=== PATIENT | female | born 1955 | race Caucasian/White ===

== ENCOUNTER 2020-11-04 09:43 | Day surgery (SDC) | payer MEDICARE, OTHER ==
[~2020-11-04] VITALS: Ht 170.2 cm; Wt 114.9 kg
[~2020-11-04 09:43] MED LIST: AZIT250 PO; BETA1 PO; CETI10 PO; FISH1000 PO; FLUSAL2505 IH; LIOT25 PO; NAPR220 PO; [UNRECOGNIZED DRUG - REMARK]
[2020-11-04] MEDS ORDERED: FLUT1DIS2 (10:47)
[2020-11-04] MEDS ORDERED: MAGNESIUM OXID500 MG PO (10:48)
== END 2020-11-04 13:41 | disposition home or self-care (01) ==
LOC: ORSCSDS 09:43
PROVIDERS: Otolaryngology
PROC: 09TL0ZZ Resection of Nasal Turbinate, Open Approach (ICD-10-PCS; principal; 2020-11-04 11:00)
PROC: 09BM0ZZ Excision of Nasal Septum, Open Approach (ICD-10-PCS; principal; 2020-11-04 11:00)
DX: J34.2 Deviated nasal septum (principal); J34.3 Hypertrophy of nasal turbinates; E03.9 Hypothyroidism, unspecified; E66.01 Morbid (severe) obesity due to excess calories; Z68.39 Body mass index [BMI] 39.0-39.9, adult; Z79.899 Other long term (current) drug therapy
CPT/HCPCS: A9270; J0171; J1100; J2250; J2405; J2704; J3010; J7120

== ENCOUNTER → 2022-02-28 | Outpatient (CLI) | payer OTHER ==
[~2022-02-28] MED LIST changes: +FLUT1DIS2; +MAGNESIUM OXID500 MG PO
== END | disposition home or self-care (01) ==
LOC: LAB SHORT 14:54 → PLD 14:54
DX: D23.9 Other benign neoplasm of skin, unspecified (principal)
CPT/HCPCS: 88305